=== PATIENT | female | born 1965 | race Two or more races ===

== ENCOUNTER 2019-02-03 09:49 | Emergency (ER) | payer OTHER ==
[~2019-02-03] VITALS: Ht 162.6 cm; Wt 79.4 kg
[2019-02-03] MEDS ORDERED: MELOXICAM7.5 MG PO (10:18)
[2019-02-03] MEDS ORDERED: ZOCOR20 MG PO (10:19)
[2019-02-03] MEDS ORDERED: GENERLAC10 GM/15 M PO (12:01)
== END 2019-02-03 12:15 | disposition home or self-care (01) ==
LOC: ED 09:49
DX: R10.9 Unspecified abdominal pain (principal); Z79.899 Other long term (current) drug therapy
CPT/HCPCS: 74177; 80053; 81001; 83690; 85025; 96374; 99284-25; J1885; Q9967